=== PATIENT | female | born 1945 | race Caucasian/White ===

== ENCOUNTER 2016-10-21 14:47 | Inpatient (IN) | payer MEDICARE ==
[~2016-10-21] VITALS: Ht 157.5 cm; Wt 105.7 kg
[~2016-10-21 14:47] MED LIST: LISI-515 PO; PROT40TA PO; SIMV80TA PO; ZANT150T2 PO; ZYRT10CA PO
[2016-10-22] MEDS: LACTATED RINGER'S 1000 ML IV SCH (07:45)
[2016-10-22] MEDS ORDERED: VITA100032 PO (07:52)
[2016-10-22 08:00] VITALS: BP 144/86; PULSE 82; RESP 18; TEMP 98.2; O2SAT 98
[2016-10-22] MEDS ORDERED: ACETAMINOPHEN 1000 MG/100 ML VIAL IV SCH (08:00)
[2016-10-22] MEDS ORDERED: metroNIDAZOLE 500 MG INJ 100 ML IV SCH (08:00)
[2016-10-22] MEDS ORDERED: INSULIN HUMAN REGULAR 1,000 UNITS/10 ML VIAL SQ PRN (08:00)
[2016-10-22] MEDS ORDERED: SODIUM CHLORID 0.9% 500 ML IV SCH (08:00)
[2016-10-22] MEDS ORDERED: APREPITANT 40 MG CAP PO SCH (08:00)
[2016-10-22] MEDS ORDERED: METOPROLOL TARTRATE 25 MG TAB PO PRN (08:00)
[2016-10-22] MEDS ORDERED: ceFAZolin 2 GM PREMIX 50 ML IV SCH (08:00)
[2016-10-22] MEDS ORDERED: ONDANSETRON HCL 4 MG/2 ML VIAL IV PUSH SCH (08:00)
[2016-10-22] MEDS ORDERED: BUPIVACAINE HCL PF 0.25% 30 ML VIAL ONE (09:45)
[2016-10-22] MEDS ORDERED: FAMOTIDINE 20 MG/2 ML VIAL ONE (09:47)
[2016-10-22] MEDS ORDERED: HYDROmorphone HCL PF 2 MG/ML VIAL ONE (09:47)
[2016-10-22] MEDS ORDERED: ONDANSETRON HCL 4 MG/2 ML VIAL IV PRN (12:00)
[2016-10-22] MEDS ORDERED: SODIUM CHLORIDE 0.9% FLUSH 10 ML FLUSH IV FLUSH PRN (12:00)
[2016-10-22] MEDS ORDERED: LACTATED RINGER'S 1000 ML INJ 1,000 ML IV ONE (12:00)
[2016-10-22] MEDS ORDERED: Post-op Orders (for Pharmacy) MISC XX ONE (12:00)
[2016-10-22] MEDS ORDERED: ACETAMINOPHEN/HYDROcodone 325 MG/5 MG TAB PO PRN (12:00)
[2016-10-22] MEDS ORDERED: METOCLOPRAMIDE HCL 10 MG/2 ML VIAL IVS PRN (12:00)
[2016-10-22] MEDS ORDERED: PROPOFOL 200 MG/20 ML AMP IV ONE (12:00)
[2016-10-22] MEDS ORDERED: ONDANSETRON HCL 4 MG/2 ML VIAL IV PUSH ONE (12:00)
[2016-10-22] MEDS ORDERED: NEOSTIGMINE 3 MG/3 ML SYR IV ONE (12:00)
[2016-10-22] MEDS ORDERED: MORPHINE SULFATE 4 MG/ML INJ IV PRN (12:00)
[2016-10-22] MEDS ORDERED: ePHEDrine/NS 25 MG/5 ML SYR IV ONE (12:00)
[2016-10-22] MEDS ORDERED: PHENYLEPH/NS 1000 MCG/10 ML SYR IV ONE (12:00)
[2016-10-22] MEDS ORDERED: DO NOT ADM ANY ANTICOAGULANT DRUGS XX PRN (12:10)
[2016-10-22] MEDS ORDERED: *morphine SULFATE 8 MG/ML PERIprocedure ONLY ONE ×3 (12:24→12:53)
[2016-10-22] MEDS ORDERED: *ONDANSETRON 4 MG VIAL PERIprocedural Use ONLY ONE (12:25)
[2016-10-22] MEDS ORDERED: PROMETHAZINE HCL 25 MG SUPP RECTAL ONE ×2 (12:28→13:00)
[2016-10-22] MEDS ORDERED: MIDAZOLAM HCL 2 MG/2 ML VIAL ONE (12:31)
[2016-10-22] MEDS ORDERED: fentaNYL CITRATE 250 MCG/5 ML AMP ONE (12:31)
[2016-10-22] MEDS: SODIUM CHLOR 0.9% 1000 ML INJ 1,000 ML IV SCH ×2 (13:45→21:17)
[2016-10-22] MEDS: metroNIDAZOLE 500 MG INJ 100 ML IV SCH (18:01)
[2016-10-22 20:00] VITALS: BP 120/56; PULSE 75; RESP 20; TEMP 98; O2SAT 98
[2016-10-22] MEDS: SODIUM CHLORIDE 0.9% FLUSH 10 ML FLUSH IV FLUSH SCH (21:00)
[2016-10-23] VITALS: BP 130/64; PULSE 74; RESP 20; TEMP 98; O2SAT 96
[2016-10-23] MEDS: metroNIDAZOLE 500 MG INJ 100 ML IV SCH ×2 (00:30→09:00)
[2016-10-23] MEDS: ACETAMINOPHEN/HYDROcodone 325 MG/5 MG TAB PO PRN ×3 (00:33→10:54)
[2016-10-23 04:00] VITALS: BP 118/62; PULSE 76; RESP 20; TEMP 98; O2SAT 95
[2016-10-23 05:33] LABS: AUTOMATED NEUTROPHIL # 9.2 TH/MM3 (1.8-7.7); BASOPHIL % 0.4 % (0.0-2.0); EOSINOPHIL # 0.1 TH/MM3 (0-0.4); EOSINOPHIL % 0.5 % (0.0-4.0); HEMATOCRIT 34.3 % (35.0-46.0); HEMO FLAGS DIFF FINAL; LYMPH % 12.2 % (9.0-44.0); LYMPHOCYTE # 1.4 TH/MM3 (1.0-4.8); MEAN CELL VOLUME 86.1 FL (80.0-100.0); MEAN CORPUSCULAR HEMOGLOBIN 28.2 PG (27.0-34.0); MEAN CORPUSCULAR HGB CONC 32.7 % (32.0-36.0); MONO % 7.5 % (0.0-8.0); NEUT % 79.4 % (16.0-70.0); PLATELET COUNT 243 TH/MM3 (150-450); RED BLOOD COUNT 3.99 MIL/MM3 (4.00-5.30); RED CELL DISTRIBUTION WIDTH 16.5 % (11.6-17.2); WHITE BLOOD COUNT 11.6 TH/MM3 (4.0-11.0)
[2016-10-23] MEDS: SODIUM CHLOR 0.9% 1000 ML INJ 1,000 ML IV SCH (07:55)
[2016-10-23 08:00] VITALS: BP 111/56; PULSE 84; RESP 20; TEMP 98.2; O2SAT 95
[2016-10-23] MEDS: LACTATED RINGER'S 1000 ML IV SCH (08:00)
[2016-10-23] MEDS ORDERED: LISINOPRIL 20 MG TAB PO SCH (09:00)
[2016-10-23] MEDS ORDERED: PRAVASTATIN SOD 80 MG TAB PO SCH (09:00)
[2016-10-23] MEDS ORDERED: PANTOPRAZOLE SOD 40 MG DELAYED RELEASE TAB PO SCH (09:00)
[2016-10-23] MEDS: SODIUM CHLORIDE 0.9% FLUSH 10 ML FLUSH IV FLUSH SCH (09:00)
[2016-10-23 12:00] VITALS: BP 101/49; PULSE 81; RESP 18; TEMP 98.7; O2SAT 96
--- NOTE | 2016-10-23 13:29 | EKG ---
Date Performed: 10/22/2016 Time Performed: 12:28:48 PTAGE: 71 years EKG: Sinus rhythm NORMAL ECG INTERPRETATION BASED ON A DEFAULT AGE OF 40 YEARS PREVIOUS TRACING : 02/12/2015 08.58 Compared to prior tracing no significant change DOCTOR: Mao Francisco Interpretating Date/Time 10/23/2016 13:28:40
--- NOTE | 2016-10-23 15:46 | HHI.DS ---
Discharge Summary Admission Date Oct 22, 2016 at 05:45 Discharge Date: Oct 23, 2016 Admitting Diagnosis (1) LAP-BAND surgery status Diagnosis: Principal Procedures Vital Signs Date Time Temp Pulse Resp B/P Pulse Ox O2 Delivery O2 Flow Rate FiO2 10/23/16 12:00 98.7 81 18 101/49 96 10/23/16 08:00 98.2 84 20 111/56 95 10/23/16 04:00 98.0 76 20 118/62 95 10/23/16 01:33 18 10/23/16 00:00 98.0 74 20 130/64 96 10/22/16 21:19 20 10/22/16 20:00 98.0 75 20 120/56 98 Brief History 71yo female presented for removal of lap band as well as repair of hiatal hernia CBC/BMP: 10/23/16 0424 Significant Findings Laboratory Tests Test 10/23/16 04:24 White Blood Count 11.6 TH/MM3 (4.0-11.0) Red Blood Count 3.99 MIL/MM3 (4.00-5.30) Hemoglobin 11.2 GM/DL (11.6-15.3) Hematocrit 34.3 % (35.0-46.0) Neutrophils (%) (Auto) 79.4 % (16.0-70.0) Neutrophils # (Auto) 9.2 TH/MM3 (1.8-7.7) Pt Condition on Discharge: Stable Discharge Disposition: Discharge Home Discharge Instructions DIET: Follow Instructions for: Full Liquid Diet Additional Diet Instructions: Take full/thick liquids until Thursday, then you can progress to soft foods as tolerated Activities you can perform: Shower Only-No Bath Activities to Avoid: Strenuous Activity Natan Cabrera Oct 23, 2016 15:46
--- NOTE | 2016-10-23 16:15 | HHI.PR ---
Subjective Subjective Notes 71yo female POD#1 lap band removal and repair of hiatal hernia. She reports minimal pain at the surgical site. Nausea is well controlled Objective Vitals/I&O Vital Signs Date Time Temp Pulse Resp B/P Pulse Ox O2 Delivery O2 Flow Rate FiO2 10/23/16 12:00 98.7 81 18 101/49 96 10/22/16 15:30 Nasal Cannula 2 Labs Laboratory Tests Test 10/23/16 04:24 White Blood Count 11.6 Red Blood Count 3.99 Hemoglobin 11.2 Hematocrit 34.3 Mean Corpuscular Volume 86.1 Mean Corpuscular Hemoglobin 28.2 Mean Corpuscular Hemoglobin 32.7 Concent Red Cell Distribution Width 16.5 Platelet Count 243 Mean Platelet Volume 10.1 Neutrophils (%) (Auto) 79.4 Lymphocytes (%) (Auto) 12.2 Monocytes (%) (Auto) 7.5 Eosinophils (%) (Auto) 0.5 Basophils (%) (Auto) 0.4 Neutrophils # (Auto) 9.2 Lymphocytes # (Auto) 1.4 Monocytes # (Auto) 0.9 Eosinophils # (Auto) 0.1 Basophils # (Auto) 0.0 CBC Comment DIFF FINAL Differential Comment Cardiovascular: Regular Lungs: Clear Abdomen: Non-distended, Non-tender Extremities: No edema Narrative Exam Patient sitting up in chair in no acute distress. Surgical site clean,dry, and intact Wound Wound : Wound Location: Abdomen Appearance: Clean & Dry A/P Problem List: (1) LAP-BAND surgery status Assessment and Plan Patient can discharge home today. Stay on full liquid diet until this weekend. She can advance to soft diet this weekend. Patient is to keep her scheduled appointment with the office. The exam, history, and the medical decision-making described in the above note were completed with the assistance of the mid-level provider. I reviewed and agree with the findings presented. I attest that I had a [id number] encounter with the patient on the same day, and personally performed and documented my assessment and findings in the medical record. Discharge Planning Discharge home today DeborahDarleneava GARNER Oct 23, 2016 16:15 Alfredo Crowder MD Nov 19, 2016 13:17
--- NOTE | 2016-11-10 10:25 | MP ---
cc: ALFREDO CROWDER DATE OF 1945 DATE OF OPERATION 10/22/2016 PREOPERATIVE DIAGNOSIS Gastric outlet obstruction from gastric ring. POSTOPERATIVE DIAGNOSES 1. Gastric outlet obstruction from gastric ring. 2. Hiatal hernia. PROCEDURE Lysis of the adhesions with partial removal of gastric mesh ring, repair of hiatal hernia. SURGEON Alfredo Crowder MD ANESTHESIA General endotracheal anesthesia. ESTIMATED BLOOD LOSS Scant. FINDINGS Large hiatal hernia with proximal stomach within the patient's chest. Gastric mesh ring approximately 5 cm distal to the GE junction with extensive inflammatory ingrowth surrounding it. SPECIMENS None. COMPLICATIONS None. OPERATION The patient was brought to the operating and placed on the operating table in supine position, bilateral sequential inflation device placed on lower extremities, general anesthesia instituted, a Allison catheter placed, antibiotics initiated. The abdomen was prepped and draped sterilely. A point in the left upper quadrant was anesthetized with 0.25% Marcaine with epinephrine. A skin incision was made, a 5-mm OptiView port placed under direct vision and pneumoperitoneum created. An additional 5-mm port was placed in the left upper quadrant and adhesions identified in the upper abdomen. Using sharp dissection, a path was cleared in the midline and 5-mm port placed under direct vision. Further sharp and blunt dissection was carried out, preparing the upper abdomen. Following this two additional 5-mm ports were placed. Prior to placement of all ports, the skin and peritoneum were anesthetized with 0.25% Marcaine with epinephrine. The patient was placed in reverse Trendelenburg position, left side up, a Sirisha-Flex retractor placed. Adhesions of the stomach to the left lobe of the liver was taken down sharply. The proximal stomach was within the chest. This was mobilized using sharp and blunt dissection. The crura of the diaphragm was dissected. The hernia sac was excised. This hiatal defect was closed with 2-0 silk suture in a [id number] manner. Attention was then focused on identifying the gastric ring. This was found approximately 5-cm distal to the GE junction. There was a mesh ring with extensive ingrowth. The ring was dissected anteriorly, an approximately 180-degree segment of the ring was removed anteriorly. At this point the operative field was inspected, hemostasis assured, the CO2 released, all ports removed and all skin incisions closed with 4-0 Monocryl. The abdominal wall was cleaned and sterile dressing placed. The patient was awakened and taken to the recovery room. MD TABITHA Barry/SSB /9:36 AM /10:17 AM
== END 2016-10-23 15:46 | disposition home or self-care (01) | DRG 328 ==
LOC: HSDI 10-22 05:45 → N07B 10-22 15:47
PROVIDERS: ADMIT Surgery; ATTEND Surgery
PROC: 0DP64CZ Removal of Extraluminal Device from Stomach, Percutaneous Endoscopic Approach (ICD-10-PCS; principal; 2016-10-22 09:38)
PROC: 0BQS4ZZ (ICD-10-PCS; 2016-10-22 09:38)
DX: K95.09 Other complications of gastric band procedure (principal); I10 Essential (primary) hypertension; K22.70 Barrett's esophagus without dysplasia; K44.9 Diaphragmatic hernia without obstruction or gangrene; K91.3 Postprocedural intestinal obstruction; Y83.8 Other surgical procedures as the cause of abnormal reaction of the patient, or of later complication, without mention of misadventure at the time of the procedure; K21.9 Gastro-esophageal reflux disease without esophagitis; E78.5 Hyperlipidemia, unspecified
CPT/HCPCS: 85025; 93005; J0131; J0690; J1170; J2250; J2270; J2370; J2405; J2710; J3010; J7030; J7040; J7120; J8501

== ENCOUNTER → 2017-07-01 | Day surgery (SDC) | payer MEDICARE ==
[~2017-07-01] MED LIST changes: +PROPOFOL 1000 MG/100 ML BTL IV ONE; +VITA100032 PO
--- NOTE | 2017-07-01 12:01 | GIPROC ---
[facility] [address] [facility] [place], [address] COLONOSCOPY PROCEDURE REPORT EXAM DATE: 07/01/2017 PATIENT NAME: Emily Richards MR #: [id number] BIRTHDATE: 1945 ENDOSCOPIST: Chidi Farooq MD ORDER #: [id number] FLEET SERVICE CLERK: Jayme Moreno RN STATUS: outpatient INDICATIONS: The patient is a 71 yr old female here for a colonoscopy due to iron deficiency anemia PROCEDURE PERFORMED: Colonoscopy with polypectomy MEDICATIONS: None and Per Anesthesia. PREP QUALITY: good ESTIMATED BLOOD LOSS: None CONSENT: The patient understands the risks and benefits of the procedure and understands that these risks include, but are not limited to: sedation, allergic reaction, infection, perforation and/or bleeding. Alternative means of evaluation and treatment include, among others: physical exam, x-rays, and/or surgical intervention. The patient elects to proceed with this endoscopic procedure. medical equipment was checked for proper function. Hand hygiene and appropriate measures for infection prevention was taken. After the risks, benefits and alternatives of the procedure were thoroughly explained, Informed consent was verified, confirmed and timeout was successfully executed by the treatment team. A digital exam revealed no abnormalities of the rectum The EC-[id number] ([id number]) endoscope was introduced through the anus and advanced to the cecum, which was identified by both the appendix and ileocecal valve. The instrument was then slowly withdrawn as the colon was fully examined. COLON FINDINGS: Two small medium sized smooth sessile polyps were found in the transverse colon. A polypectomy was performed with a cold snare. The resection was complete and the polyp tissue was completely retrieved. Moderate diverticulosis was noted in the sigmoid colon. The colon mucosa was otherwise normal. Retroflexed views revealed no abnormalities The scope was then completely withdrawn from the patient and the procedure terminated. PROCEDURE WITHDRAWAL TIME:9.0minutes ADVERSE EVENTS: There were no complications. IMPRESSIONS: 1. Two small medium sized sessile polyps were found in the transverse colon; polypectomy was performed with a cold snare 2. Moderate diverticulosis was noted in the sigmoid colon 3. The colon mucosa was otherwise normal 4. Retroflexed views revealed no abnormalities 5. Revealed no abnormalities of the rectum RECOMMENDATIONS: 1. Await biopsy results. Biopsy results will not be ready for 7-10 days. If you don't hear from us in two weeks, call our office for results. 2. Follow-up: GI Clinic PRN 3. High fiber diet 4. Yearly hemoccult RECALL: Return 5 years Colonoscopy Chidi Farooq MD eSigned: Chidi Farooq MD 07/01/2017 12:00 PM cc: Srinath Larson M.D and [facility]
--- NOTE | 2017-07-01 12:06 | GIPROC ---
[facility] [address] [facility] [place], [address] EGD PROCEDURE REPORT EXAM DATE: 07/01/2017 PATIENT NAME: Emily Richards MR #: [id number] BIRTHDATE: 1945 ATTENDING: Chidi Farooq MD ORDER #: [id number] SOFTWARE LICENSING EXECUTIVE: Jayme Moreno RN STATUS: outpatient INDICATIONS: The patient is a 71 yr old female here for an EGD due to iron deficiency anemia and follow up of Dailey's esophagus PROCEDURE PERFORMED: EGD w/ biopsy MEDICATIONS: None and Per Anesthesia. TOPICAL ANESTHETIC: CONSENT: The patient understands the risks and benefits of the procedure and understands that these risks include, but are not limited to: sedation, allergic reaction, infection, perforation and/or bleeding. Alternative means of evaluation and treatment include, among others: physical exam, x-rays, and/or surgical intervention. The patient elects to proceed with this endoscopic procedure. medical equipment was checked for proper function. Hand hygiene and appropriate measures for infection prevention was taken. After the risks, benefits and alternatives of the procedure were thoroughly explained, Informed consent was verified, confirmed and timeout was successfully executed by the treatment team. The patient was anesthetized with topical anesthesia and the EC-3890Li ([id number]) endoscope was introduced through the mouth and advanced to the second portion of the duodenum. Retroflexed views revealed no abnormalities The gastroscope was then slowly withdrawn and removed. ESOPHAGUS: There was a 10cm segment of Dailey's esophagus found in the entire esophagus. The length of circumferential Dailey's was 9cm ([place] C9) and the length of Maximal extent of Dailey's was 10cm ([place] M10). There was no nodular mucosa noted in the Dailey's segment. Multiple biopsies were performed. The endoscopy was otherwise normal. STOMACH: A large hiatal hernia was noted. Gastric pouch noted extending from the cardia segment. ADVERSE EVENTS: There were no complications. IMPRESSIONS: 1. There was a 10cm segment of Dailey's esophagus found in the entire esophagus; multiple biopsies were performed 2. Normal endoscopy otherwise 3. Large hiatal hernia 4. Gastric pouch noted extending from the cardia segment 5. Retroflexed views revealed no abnormalities RECOMMENDATIONS: 1. Await biopsy results. Biopsy results will not be ready for 7-10 days. If you don't hear from us in two weeks, call our office for biopsy results. 2. Continue PPI 3. Follow-up: GI clinic 3 week(s) 4. Resume coumadin in am cbc prior office visit PATIENT CONDITION: stable DISPOSITION: Home REPEAT EXAM: Return 1 year EGD Chidi Farooq MD eSigned: Chidi Farooq MD 07/01/2017 12:05 PM cc: Srinath Triana [facility] [place] PATIENT NAME: Emily Richards MR#: [id number]
== END | disposition home or self-care (01) ==
LOC: ESDC 08:46
PROVIDERS: ATTEND Internal Medicine Gastroenterology
DX: D50.9 Iron deficiency anemia, unspecified (principal); D12.3 Benign neoplasm of transverse colon; K57.90 Diverticulosis of intestine, part unspecified, without perforation or abscess without bleeding; K22.70 Barrett's esophagus without dysplasia; K44.9 Diaphragmatic hernia without obstruction or gangrene
CPT/HCPCS: 88305